=== PATIENT | female | born 1990 | race Two or more races ===

== ENCOUNTER 2019-02-01 19:39 | Inpatient (IN) | payer SELFPAY ==
[~2019-02-01] VITALS: Ht 157.5 cm; Wt 68.5 kg
[~2019-02-01 19:39] MED LIST: IBUP800T19 PO; PREN1TAB58 PO
[2019-02-01] MEDS ORDERED: OXYTOCIN 30 UNIT/500 ML PREMIX 500 ML IV PRN ×3 (20:00→21:15)
[2019-02-01] MEDS ORDERED: ONDANSETRON PF 4 MG/2 ML VIAL. IV PRN (20:00)
[2019-02-01] MEDS ORDERED: ACETAMINOPHEN 325 MG TABLET. PO PRN ×2 (20:00→21:15)
[2019-02-01] MEDS ORDERED: BUTORPHANOL 2 MG/ML VIAL. IV PRN (20:00)
[2019-02-01] MEDS ORDERED: MAG HYDROX/ALUMINUM HYD/SIMETH 30 ML ORAL.SUSP PO PRN ×2 (20:00→21:15)
[2019-02-01] MEDS ORDERED: NALBUPHINE 10 MG/ML AMPUL. IV PRN (20:00)
[2019-02-01] MEDS ORDERED: IBUPROFEN 400 MG TABLET. PO PRN (20:00)
[2019-02-01] MEDS ORDERED: TERBUTALINE 1 MG/ML VIAL. SQ PRN (20:00)
[2019-02-01] MEDS ORDERED: fentaNYL PF VIAL 100 MCG/2 ML VIAL IV PRN (20:00)
[2019-02-01] MEDS ORDERED: LIDOCAINE 1% PF 30 ML VIAL. INJ PRN (20:00)
[2019-02-01] MEDS ORDERED: 0.9 % SODIUM CHLORIDE 10 ML DISP.SYRIN. IV PRN ×2 (20:00→21:15)
[2019-02-01] MEDS: IV RINGERS,LACTATED 1000ML 1,000 ML IV SCH (20:25)
[2019-02-01 20:36] LABS: BASO # 0.1 x10^3/uL (0.0-0.2); BASO % 1 % (0-3); EOS # 0.1 x10^3/uL (0.0-0.7); EOS % 1 % (0-3); HEMATOCRIT 34.4 % (36.0-47.0); HEMOGLOBIN 11.5 g/dL (12.0-15.5); LYMPH # 2.1 x10^3/uL (1.0-4.8); LYMPH % 19 % (24-48); MEAN CORPUSCULAR HEMOGLOBIN 28 pg (25-35); MEAN CORPUSCULAR HGB CONC 34 g/dL (31-37); MEAN CORPUSCULAR VOLUME 83 fL (79-100); MONO # 0.6 x10^3/uL (0.0-1.1); MONO % 5 % (0-9); NEUT % 74 % (31-73); PLATELET COUNT 300 x10^3/uL (140-400); RED BLOOD COUNT 4.12 x10^6/uL (3.50-5.40); WHITE BLOOD COUNT 10.9 x10^3/uL (4.0-11.0)
--- NOTE | 2019-02-01 20:55 | PDOC1 ---
OB - History Hx of Present Care: Good Care Ultrasounds: Normal mid trimester US Obstetrical Complications: None Medical Complications: None Past Family/Social History * Past Medical, Surgical, Family and Obstetric Histories reviewed from chart. Blood Type: O+ Rubella: Immune RPR/VDRL: Negative GBS Status: Unknown HBsAG: Negative OB - Chief Complaint & HPI Date of Admission: Date of Admission: Feb 01, 2019 at 19:39 Chief Complaint/History : 3 Para: 2 EGA: 39 Reason for admission: active labor Admission Nurse Assessment Rev: Yes OB - Admission Exam Physical Exam HEENT: Normal Heart: Regular Rate Lungs: Clear, Equal Abdomen: Gravid, Non tender, Soft Extremities: Edema Reflexes: Normal Cervical Dilatation: 7cm Effacement: 100% Station: -1 Membranes: Intact Heart Rate: Normal Accelerations: Accelerations Present Decelerations: No decelerations Contractions on Admission: < 5 Minutes Apart Intensity: Firm Text A: 39 wks IUP Active labor GBS unknown P: Admit for labor management. Start Amp for GBS status. ADRIA REY Jr, MD Feb 01, 2019 20:55
--- NOTE | 2019-02-01 21:14 | PDOC ---
VAGINAL DELIVERY DATE DATE: 02/01/19 TIME: 21:13 : 3 Para: 3 EGA: 39 VAGINAL DELIVERY: VTX VACCUM ASSISTED: No PLACENTA: Spontaneous 02/23 SEX: Female WEIGHT Weight [2880 gm ] Nuchal Cord: No Amniotic Fluid: Clear PAIN: Natural EPISIOTOMY: No EXTENSION: No EBL 300 ml COMPLICATIONS none CONDITION pt. stable Signs of Intrauterine Infectio: None Shoulder Dystocia: No ADRIA REY Jr, MD Feb 01, 2019 21:14
[2019-02-01] MEDS ORDERED: oxyCODONE/APAP 5/325 1 TAB TABLET PO PRN (21:15)
[2019-02-01] MEDS ORDERED: SIMETHICONE 80 MG TAB.CHEW PO PRN (21:15)
[2019-02-01] MEDS ORDERED: HYDROCORTISONE 1% TOPICAL OINTMENT 30GM TUBE. TP PRN (21:15)
[2019-02-01] MEDS ORDERED: PHENYLEPH/MINERAL OIL/PETROLAT RECTAL OINTMENT 57GM TUBE. RC PRN (21:15)
[2019-02-01] MEDS ORDERED: diphenhydrAMINE HCL 25 MG CAPSULE PO PRN (21:15)
[2019-02-01] MEDS ORDERED: BENZOCAINE 20% TOPICAL AEROSOL SPRAY 57GM CAN. TP PRN (21:15)
[2019-02-01] MEDS ORDERED: MMR per PROTOCOL. MC PRN (21:15)
[2019-02-01] MEDS ORDERED: MAGNESIUM HYDROXIDE 2,400 MG/30 ML ORAL.SUSP. PO PRN (21:15)
[2019-02-01] MEDS ORDERED: ZOLPIDEM 5 MG TABLET. PO PRN (21:15)
[2019-02-01] MEDS: IBUPROFEN 400 MG TABLET. PO PRN (23:37)
[2019-02-02 00:28] VITALS: BP 94/58
[2019-02-02] MEDS: IV RINGERS,LACTATED 1000ML 1,000 ML IV SCH (03:54)
[2019-02-02 04:00] VITALS: BP 94/58
[2019-02-02] MEDS: FERROUS SULFATE 325 MG TABLET. PO SCH ×3 (06:03→16:54)
[2019-02-02 06:10] LABS: BASO # 0.1 x10^3/uL (0.0-0.2); BASO % 1 % (0-3); EOS # 0.1 x10^3/uL (0.0-0.7); EOS % 1 % (0-3); HEMATOCRIT 26.9 % (36.0-47.0); HEMOGLOBIN 9.2 g/dL (12.0-15.5); LYMPH # 2.2 x10^3/uL (1.0-4.8); LYMPH % 19 % (24-48); MEAN CORPUSCULAR HEMOGLOBIN 28 pg (25-35); MEAN CORPUSCULAR HGB CONC 34 g/dL (31-37); MEAN CORPUSCULAR VOLUME 83 fL (79-100); MONO # 0.7 x10^3/uL (0.0-1.1); MONO % 6 % (0-9); NEUT # 8.2 x10^3/uL (1.8-7.7); NEUT % 73 % (31-73); PLATELET COUNT 225 x10^3/uL (140-400); RED BLOOD COUNT 3.23 x10^6/uL (3.50-5.40); RED CELL DISTRIBUTION WIDTH 14.8 % (11.5-14.5); WHITE BLOOD COUNT 11.1 x10^3/uL (4.0-11.0)
[2019-02-02 08:00] VITALS: BP 93/56
--- NOTE | 2019-02-02 09:32 | PDOC ---
Provider Note Provider Note Doing well VSS Uterus NTTP FU in AM SHAW CASTILLO MD Feb 02, 2019 09:32
[2019-02-02] MEDS: IBUPROFEN 400 MG TABLET. PO PRN ×2 (11:52→22:07)
[2019-02-02 12:04] VITALS: BP 96/53
[2019-02-02 16:09] VITALS: BP 93/46
[2019-02-02] MEDS: DOCUSATE SODIUM 100 MG CAPSULE. PO PRN (22:06)
[2019-02-02 22:27] VITALS: BP 104/59
[2019-02-03 05:15] VITALS: BP 92/47
--- NOTE | 2019-02-03 10:02 | PDOC3 ---
OB DISCHARGE SUMMARY DATE OF ADMISSION: 02/01/19 DATE OF DISCHARGE: 02/03/19 REASON FOR ADMISSION: Onset of labor PROCEDURES: Ultrasound INTRAPARTUM PROCEDURES: Spontanous Vag Deliv PROCEDURES: None OPERATIONS: None DISCHARGE DIAGNOSIS: Term Delivered DISCHARGE INFORMATION: Activity, Diet HOSPITAL COURSE Unremarkable CONDITION AT DISCHARGE Stable SHAW CASTILLO MD Feb 03, 2019 10:02
[2019-02-03] MEDS ORDERED: NAPR-514 PO (10:04)
[2019-02-03] MEDS ORDERED: HYDR-3164 PO (10:04)
[2019-02-03] MEDS ORDERED: BISACODYL 10 MG SUPP.RECT. PR PRN (10:15)
[2019-02-03] MEDS: FERROUS SULFATE 325 MG TABLET. PO SCH (10:34)
[2019-02-03] MEDS: DOCUSATE SODIUM 100 MG CAPSULE. PO PRN (10:34)
[2019-02-03 12:56] VITALS: BP 99/59
[2019-02-03] MEDS: IBUPROFEN 400 MG TABLET. PO PRN (16:15)
--- NOTE | 2019-02-03 18:20 | NUR ---
Discharge Discharge instructions given per torsion spring coiling machine setter phone, no questions or concerns noted. To follow up with Dr Roberson in 1 week, then [facility] 6 weeks. Patient waiting for baby to be discharged, will continue to monitor.
== END 2019-02-03 19:00 | disposition home or self-care (01) | DRG 807 ==
LOC: OBSVTOIN 19:39 → 3 SO LND 19:39 → 3 NORTH 02-02
PROVIDERS: ADMIT Specialist; ATTEND Specialist
PROC: 10E0XZZ Delivery of Products of Conception, External Approach (ICD-10-PCS; principal; 2019-02-01)
DX: O80 Encounter for full-term uncomplicated delivery (principal); Z37.0 Single live birth; Z3A.39 39 weeks gestation of pregnancy
CPT/HCPCS: 36415; 85025; 86592; 86850; 86900; 86901; J0696; J2590; J7120; G0378